=== PATIENT | male | born 1975 | race Caucasian/White ===

== ENCOUNTER 2018-08-10 19:29 | Observation (INO) | payer BC ==
[~2018-08-10] VITALS: Ht 177.8 cm; Wt 159.1 kg
[2018-08-10 20:21] VITALS: BP 133/97
[2018-08-10 20:28] LABS: BASOPHILS 0.4 % (0-2); EOSINOPHILS 1.2 % (0-7); HEMOGLOBIN 15.1 g/dL (13.5-17.5); IMMATURE GRANULOCYTES 0.4 % (0-5); LYMPHOCYTES 20.3 % (15-50); MCHC 32.8 g/dL (31.0-37.0); MCV 88.3 fL (80.0-100.0); MONOCYTES 9.2 % (2-11); NEUTROPHILS 68.5 % (40-80); PLATELET COUNT 284 10x3/uL (130-400); RBC 5.21 10x6/uL (4.20-6.10); RDW 14.4 % (11.5-14.5); WBC 13.6 10x3/uL (4.8-10.8)
[2018-08-10 20:55] LABS: ALBUMIN 2.8 g/dL (3.4-5.0); ALKALINE PHOSPHATASE 53 U/L (46-116); ALT (SGPT) 70 U/L (10-68); BILIRUBIN - TOTAL 0.54 mg/dL (0.2-1.3); CALC OSMOLALITY 286 mosm/kg (275-300); CALCIUM 8.6 mg/dL (8.5-10.1); CARBON DIOXIDE 23.3 mmol/L (21.0-32.0); CHLORIDE - SERUM 108 mmol/L (98-107); CREATININE - SERUM 1.6 mg/dL (0.6-1.3); GLUCOSE 96 mg/dL (74-106); POTASSIUM - SERUM 3.8 mmol/L (3.5-5.1); PROTEIN - SERUM 6.3 g/dL (6.4-8.2); SODIUM 143 mmol/L (136-145); UREA NITROGEN 19 mg/dL (7-18); eGFR NON AFRICAN AMERICAN 51 mL/min (90-120)
[2018-08-10 21:00] VITALS: BP 146/96
[2018-08-10 21:02] LABS: APTT 24.8 SECONDS (22.8-39.4); INR 1.06 (0.85-1.17); PROTIME 13.3 SECONDS (11.6-15.0)
[2018-08-10 21:03] LABS: D-DIMER-QUANTITATIVE 1.89 ug/mLFEU (0.20-0.54)
[2018-08-10 21:09] LABS: CKMB 1.6 U/L (0.0-3.6); CREATINE KINASE 207 UL (21-232); TROPONIN-I 0.042 ng/mL (0.000-0.060)
[2018-08-10 22:00] VITALS: BP 144/115
[2018-08-10 22:28] VITALS: BP 134/78; Ht 177.8 cm; Wt 159.1 kg
[2018-08-10 23:00] VITALS: BP 137/97
[2018-08-11] VITALS (13 sets, daily range): BP systolic 95–139; BP diastolic 50–111
[2018-08-11 07:07] LABS: BASOPHILS 0.5 % (0-2); EOSINOPHILS 1.2 % (0-7); HEMATOCRIT 44.9 % (42.0-54.0); HEMOGLOBIN 14.4 g/dL (13.5-17.5); IMMATURE GRANULOCYTES 0.4 % (0-5); LYMPHOCYTES 16.5 % (15-50); MCH 28.8 pg (26.0-34.0); MCHC 32.1 g/dL (31.0-37.0); MCV 89.8 fL (80.0-100.0); MEAN PLATELET VOLUME 11.4 fL (7.4-10.4); MONOCYTES 10.3 % (2-11); NEUTROPHILS 71.1 % (40-80); PLATELET COUNT 281 10x3/uL (130-400); RDW 14.8 % (11.5-14.5); WBC 11.2 10x3/uL (4.8-10.8)
[2018-08-11 07:26] LABS: ALBUMIN 2.7 g/dL (3.4-5.0); ALKALINE PHOSPHATASE 53 U/L (46-116); ALT (SGPT) 66 U/L (10-68); CALC OSMOLALITY 284 mosm/kg (275-300); CALCIUM 8.5 mg/dL (8.5-10.1); CARBON DIOXIDE 26.4 mmol/L (21.0-32.0); CHLORIDE - SERUM 107 mmol/L (98-107); CKMB 1.7 U/L (0.0-3.6); CREATINE KINASE 141 UL (21-232); CREATININE - SERUM 1.4 mg/dL (0.6-1.3); GLUCOSE 93 mg/dL (74-106); POTASSIUM - SERUM 4.1 mmol/L (3.5-5.1); PROTEIN - SERUM 6.2 g/dL (6.4-8.2); SODIUM 142 mmol/L (136-145); TROPONIN-I 0.027 ng/mL (0.000-0.060); UREA NITROGEN 17 mg/dL (7-18); eGFR NON AFRICAN AMERICAN 59 mL/min (90-120)
[2018-08-11] MEDS ORDERED: BETAPACE 120 M120 MG PO (11:16)
[2018-08-11] MEDS ORDERED: ELIQUIS5 MG PO (11:16)
[2018-08-11] MEDS ORDERED: ASPIRIN325 MG PO (11:16)
--- NOTE | 2018-08-15 10:08 | CN ---
PATIENT NAME:CRISTIAN SHAW MEDICAL RECORD: [id number] : 77 LOCATION:[facility]- ADMIT DATE: 08/10/18 ACCOUNT: [id number] CONSULTING PHYSICIAN: MAURISIO CAIN MD REFERRING PHYSICIAN: SATHISH LEÓN MD DATE OF CONSULTATION: 08/10/2018 DIAGNOSES: 1. Atrial fibrillation. 2. Shortness of breath and dyspnea on exertion. 3. Bronchitis. HISTORY: This is a gentleman who has been treated for bronchitis for the past 3 weeks as an outpatient. He presented due to continued shortness of breath and was found to be in atrial fibrillation with rapid response, sent to the Emergency Room. Here, he does not feel that he is in atrial fibrillation. He does not feel any palpitations. He has not had any chest pain. His EKG is with no ST-T changes. The ventricular response is in the 150s. Initially, he received IV Cardizem, which he is off now. His ventricular response is 100-110 and systolic blood pressure is in 130 range. PHYSICAL EXAMINATION: GENERAL APPEARANCE: Well-nourished, well-developed, appears stated age. Level of distress, comfortable. PSYCHIATRIC: Mental status, alert, normal affect. Orientation, oriented to time, place and person. EYES: Lids and conjunctiva, noninjected. No discharge, no pallor. ENT: Lips, teeth, gums, normal dentition. Oropharynx, no cyanosis, no pallor. NECK: Carotid arteries, bilateral normal upstroke, no bruits, no thrills. JUGULAR VEINS: No jugular venous pressure or distention. CERVICAL LYMPH NODES: Nontender, nonenlarged. THYROID: Not enlarged. Nontender. No nodules. LUNGS: Respiratory effort, unlabored. CHEST: Normal curvature. No thoracic deformity. No chest wall tenderness. Percussion, resonant. Auscultation, clear. No wheezes, no rales, no rhonchi. CARDIOVASCULAR: Precordial exam, nondisplaced. No heaves or pericardial thrills. Rate and rhythm, regular. Heart sounds, normal S1, normal S2. No S3, no gallop, no rub. Systolic murmur, not heard. Diastolic murmur, not heard. EXTREMITIES: No cyanosis, no edema. Peripheral pulses, full and equal in all extremities, except as noted. No bruits appreciated. ABDOMEN: Soft, nondistended. Normal aorta. No bruit. Nontender. No masses. Liver, nontender, no hepatomegaly. Spleen, nontender, no splenomegaly. MUSCULOSKELETAL: No joint tenderness. No joint swelling. No erythema. NEUROLOGICAL: Normal gait, normal strength, normal tone. SKIN: Warm and dry. OVERALL IMPRESSION: Atrial fibrillation with rapid ventricular response. We will get an echocardiogram today and start him on sotalol and Eliquis after the echocardiogram. He can certainly go home. We will follow up as an outpatient on next Friday at 10 o'clock. TRANSINT:[id number] Voice Confirmation ID: [id number] DOCUMENT ID: [id number] CONSULT REPORT [id number] CRISTIAN SHAW, MAURISIO BUSTILLOS at 1008 CC: [id number] DICTATION DATE: 08/11/18 1000 FIRST AID ATTENDANT: 08/11/18 1112 DIS IN 08/11/18 [id number] [place] [address]
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
== END 2018-08-11 14:30 | disposition home or self-care (01) ==
LOC: D.ER 19:29 → OBSVTIME 21:38 → D.ER 21:38 → D.EDHOLD 21:38
PROVIDERS: Family Medicine; ADMIT Family Medicine
DX: I48.91 Unspecified atrial fibrillation (principal); J40 Bronchitis, not specified as acute or chronic; N28.9 Disorder of kidney and ureter, unspecified; I50.9 Heart failure, unspecified

== ENCOUNTER 2018-08-14 11:26 | Inpatient (IN) | payer BC ==
[~2018-08-14] VITALS: Ht 177.8 cm; Wt 159.1 kg
--- NOTE | ~2018-08-14 | HEMODYNAMI ---
PATIENT:CRISTIAN SHAW MEDICAL RECORD: [id number] : 77 [facility] [id number] ADMISSION DATE: 08/14/18 Generatedon:08/15/201810:11 Patient name: CRISTIAN SHAW Patient #: [id number] SS N: : 1975 Date of study: 08/15/2018 Page: Of Hemodynamic Procedure Report Patient Data Patient Demographics Procedure consent was obtained First Name: CRISTIAN Gender: Male Last Name: VALERIA : 1975 Patient #: [id number] Age: 42 year(s) Race: Unknown Additional ID: [id number] Contact details Address: [address] [place] [address] State: [place] City: [place] Zip code: [address] Past Medical History Allergies: No known allergies Admission Admission Data Admission Date: 08/14/2018 Admission Time: 14:16 Room #: D2118 Lab Results Lab Result Date: 08/15/2018 Lab Result Time: 0:00 Biochemistry Name Units Result Min Max BUN mg/dl 27 --(----)-* 7 18 Creatinine mg/dl 1.8 --(----)-* 0.6 1.3 CBC Name Units Result Min Max Hematocrit % 48.7 --(--*-)-- 42 54 Hemoglobin g/dl 15.7 --(--*-)-- 13.5 17.5 Procedure Procedure Types Cath Procedure Diagnostic Procedure LHC C w/Coronaries Procedure Description Procedure Date Procedure Date: 08/15/2018 Procedure Start Time: 10:04 Procedure End Time: 10:10 Procedure Staff Name Function Paul Gonzalez MD Performing Physician Joe Finley RT Monitor Fabian Bullock RN Nurse Nicolle Lerma RT Scrub Procedure Data Cath Procedure Fluoroscopy Diagnostic fluoroscopy Total fluoroscopy Time: 1 time: 1 min min Diagnostic fluoroscopy Total fluoroscopy dose: 561 dose: 561 mGy mGy Contrast Material Contrast Material Type Amount (ml) Isovue 300 39 Entry Location Entry Primary Successful Side Size Upsize Upsize Entry Closure Gerard ccessful Closure Location (Fr) 1 (Fr) 2 (Fr) Remarks Device Remarks Radial Right 6 Fr Mechanical artery Short Compression Estimated blood loss: 5 ml Diagnostic catheters Device Type Used For End Catheter Placement DIAGNOSTIC [place] 110cm 5 Procedure Fr catheter ([id number]) Procedure Complications No complications Procedure Medications Medication Administration Route Dosage 0.9% NaCl I.V. 100 ml/hr Oxygen etCO2 Nasal cannula 2 l/min Heparin Flush Bag added to field 2 bags (1000units/500ml NS) Lidocaine 2% added to field 20 Radial Cocktail added to field 1 syringe (Verapomil 2mg/Nitro 400mcg/Heparin 1500units) Versed I.V. 2 mg Fentanyl I.V. 100 mcg Radial Cocktail I.A. 1 syringe (Verapomil 2mg/Nitro 400mcg/Heparin 1500units) Hemodynamics Rest Heart Rate: 67 (bpm) Snapshots Pre Cath Intra NCS Post Cath Vital Signs Time Heart Resp SPO2 etCO2 NIBP (mmHg) Rhythm Pain Sedation Rate (ipm) (%) (mmHg) Status Level (bpm) 9:51:58 67 39 94 0 137/84(106) NSR 0 (11) 10(A) , No pain 9:56:28 69 34 95 0 125/79(110) NSR 0 (11) 10(A) , No pain 10:00:54 70 16 93 0 118/78(97) NSR 0 (11) 10(A) , No pain 10:05:17 63 26 96 31.2 118/81(97) NSR 0 (11) 10(A) , No pain Medications Time Medication Route Dose Verified Delivered Reason Notes Effectiveness by by 9:56:25 0.9% NaCl I.V. 100 Fabian Fabian Per ml/hr Ara Bullock physician RN RN 9:56:37 Oxygen etCO2 2 l/min Fabian Fabian for low 02 Nasal Lorigan Lorigan sats cannula RN RN 9:57:12 Heparin Flush added 2 bags Fabian Fabian used for Bag to Ara Bullock procedure (1000units/500ml field RN RN NS) 9:57:26 Lidocaine 2% added 20ml Fabian Fabian for local to vial Lorigan Lorigan anesthetic field RN RN 9:57:49 Radial Cocktail added 1 Fabian Fabian used for (Verapomil to syringe Ara Bullock procedure 2mg/Nitro field RN RN 400mcg/Heparin 1500units) 10:04:40 Versed I.V. 2 mg Fabian Peralta for sedation Ara Bullock RN RN 10:04:49 Fentanyl I.V. 100 mcg Fabian Peralta for sedation Ara Bullock RN RN 10:05:02 Radial Cocktail I.A. 1 Fabian Miller for (Verapomil syringe Ara Gonzalez MD vasodilation 2mg/Nitro RN 400mcg/Heparin 1500units) Procedure Log Time Note 9:23:28 Time tracking: Call back (After hours or weekends) 9:36:09 Plan of Care:Hemodynamics will remain stable., Cardiac rhythm will remain stable., Comfort level will be maintained., Respiratory function will remain adequate., Patient/ family verbilizes understanding of procedure., Procedure tolerated without complication., Recovers from procedure without complications.. 9:36:11 Fabian Bullock RN sent for patient. Start room use. 9:41:31 Patient received from PCU to CCL 1 Alert and oriented. Tansferred to table in Supine position. 9:41:32 Warm blankets applied, and manny hugger turned on for patient comfort. 9:41:32 Correct patient and procedure confirmed by team. 9:41:33 Signed procedure consent form obtained from patient. 9:41:34 ECG and BP/O2 sat monitors applied to patient. 9:41:35 Full Disclosure recording started 9:50:40 Vital chart was started 9:56:25 0.9% NaCl 100 ml/hr I.V. was administered by Fabian Bullock RN; Per physician; 9:56:37 Oxygen 2 l/min etCO2 Nasal cannula was administered by Fabian Bullock RN; for low 02 sats; 9:57:12 Heparin Flush Bag (1000units/500ml NS) 2 bags added to field was administered by Fabian Bullock RN; used for procedure; 9:57:26 Lidocaine 2% 20ml vial added to field was administered by Fabian Bullock RN; for local anesthetic; 9:57:49 Radial Cocktail (Verapomil 2mg/Nitro 400mcg/Heparin 1500units) 1 syringe added to field was administered by Fabian Bullock RN; used for procedure; 9:59:48 Baseline sample Acquired. 9:59:51 Rhythm: atrial fibrillation 10:00:00 H&P Date Dictated: 08/11/2018 Within 30 days and on chart.. 10:00:02 Pre-procedure instructions explained to patient. 10:00:02 Pre-op teaching completed and patient verbalized understanding. 10:00:03 Family in waiting room. 10:00:06 Patient NPO since Midnight. 10:00:12 Patient allergic to No known allergies 10:02:33 Is the patient allergic to Iodine/contrast media? No. 10:02:34 Is patient on blood thinner?Yes 10:02:35 ACC The patient was administered the following blood thiners within the last 24 hours: ACCPlavix 10:02:36 Patient diabetic? No. 10:02:39 Previous problem with sedation/anesthesia? No ? 10:02:40 Snore? Yes 10:02:41 Sleep apnea? Unknown 10:02:48 Deviated septum? No 10:02:49 Opens mouth fully? Yes 10:02:49 Sticks out tongue? Yes 10:02:52 Airway obstruction? No ? 10:02:54 Dentures? No ? 10:02:56 Pre procedure: right dorsailis pedis pulse Doppler 10:02:58 Modified Reese's test Ulnar < 7 seconds 10:02:59 Patient pain scale 0/10 ?. 10:03:13 IV patent on arrival in left antecubital with 0.9% NaCl at [facility]. 10:03:15 Lab results completed and on chart. 10:03:17 Right Radial & Right Groin area was prepped with chlora-prep and draped in sterile fashion 10:03:17 Alarms reviewed by R. N. 10:03:18 Sharps counted by scrub and verified by R.N. 10:03:21 Zero performed for pressure channel P1 10:03:25 Zero performed for pressure channel P1 10:03:28 Zero performed for pressure channel P1 10:03:39 Zero performed for pressure channel P1 10:03:55 Use device set Radial Dx or PCI 10:03:56 ACIST Syringe (77504) opened to sterile field. 10:03:57 Medline Cath Pack ([id number]) opened to sterile field. 10:03:58 Bag Decanter (2002S) opened to sterile field. 10:03:59 ACIST Hand Control (53747) opened to sterile field. 10:03:59 ACIST Manifold (62143) opened to sterile field. 10:03:59 Tegaderm 4 x 4 (1626W) opened to sterile field. 10:04:00 MBrace Wrist Support ([id number]) opened to sterile field. 10:04:01 SHEATH 6FR Slender (70-7031) opened to sterile field. 10:04:02 DIAGNOSTIC WIRE .035 260cm J wire (448883) opened to sterile field. 10:04:07 Physician arrived 10:04:07 --------ALL STOP TIME OUT------ 10:04:08 Final Timeout: patient, procedure, and site verified with staff and physician. All members of the team are in agreement. 10:04:09 Right Radial & Right Groin site verified by team. 10:04:12 Fire Safety Assessment: A--An alcohol-based skin anteseptic being used preoperatively., C--Open oxygen or nitrous oxide is being used., D--An ESU, laser, or fiber-optic light is being used. 10:04:18 Physical assessment completed. ASA score P 2 - A patient with mild systemic disease as per Paul Gonzalez MD. 10:04:21 Sedation plan: IV Moderate Sedation Medication:Versed, Fentanyl 10:04:27 Procedure started. 10:04:35 Local anesthetic to right radial artery with Lidocaine 2% by Paul Gonzalez MD.INITIAL ACCESS ONLY 10:04:40 Versed 2 mg I.V. was administered by Fabian Bullock RN; for sedation; 10:04:44 A 6 Fr Short sheath was inserted into the Right Radial artery 10:04:49 Fentanyl 100 mcg I.V. was administered by Fabian Bullock RN; for sedation; 10:04:51 A DIAGNOSTIC [place] 110cm 5 Fr catheter (330953) was advanced over the wire and used for Procedure. 10:04:53 LV gram done using VACA 10:04:58 Injector settings: Ml/sec: 5, Volume: 15, 10:05:02 Radial Cocktail (Verapomil 2mg/Nitro 400mcg/Heparin 1500units) 1 syringe I.A. was administered by Paul Gonzalez MD; for vasodilation; 10:05:04 EF : 30 % 10:05:05 LCA angiography performed. 10:05:26 RCA angiography performed. 10:05:41 Catheter removed. 10:05:43 TR BAND Large ([id number]) opened to sterile field. 10:07:16 Sheath removed intact; hemostasis achieved with Mechanical Compression to the Right Radial artery. 10:07:17 Procedure ended.(Physican Out) 10:07:34 Fluoroscopy time 01.00 minutes. 10:07:38 Fluoroscopy dose: 561 mGy 10:07:38 Flurop Dose total: 561 10:07:46 Contrast amount:Isovue 300 39ml. 10:07:47 Sharps counted by scrub and verified by R.N. 10:07:49 TR band inflated with 12cc of air. 10:07:50 Insertion/operative site no bleeding no hematoma. 10:07:56 Post right radial artery:stable, soft, clean and dry 10:07:58 Post Procedure Pulses reassessed and unchanged 10:08:01 Post-procedure physical assessment completed. ASA score P 2 - A patient with mild systemic disease as per Paul Gonzalez MD. 10:08:15 Post procedure rhythm: unchanged. 10:08:19 Estimated blood loss: 5 ml 10:08:20 Post procedure instruction explained to patient.Patient verbalizes understanding. 10:08:21 Patient needs reinforcement of post procedure teaching. 10:09:28 Procedure and supply charges have been captured, reviewed, submitted and are correct. 10:09:31 Procedure Complication : No complications 10:09:56 Vital chart was stopped 10:09:58 See physician's report for complete and final results. 10:10:04 Report given to PCU. 10:10:06 Patient transfered to PCU with Stretcher. 10:10:08 Procedure ended. 10:10:08 Full Disclosure recording stopped 10:10:12 End room use (Document Last) 10:10:53 Lab Result : Creatinine 1.8 mg/dl 10:10:53 Lab Result : BUN 27 mg/dl 10:10:53 Lab Result : Hematocrit 48.7 % 10:10:53 Lab Result : Hemoglobin 15.7 g/dl Device Usage Item Name Manufacture Quantity Catalog Hospital Part Current Minimal Lot# / Number Charge Number Stock Stock Serial# Code [facility] 1 [id number] [id number] 681014 579090 20 Syringe Medical (47549) Systems Inc Medline Medline 1 [id number] 75964 733127 5 Cath Pack ([id number]) Bag Microtek 1 2001S 220530 27470 188303 5 Decanter Medical Inc. () ACIST Hand Acist 1 86100 598837 004201 259292 5 Control Medical (29617) Systems Inc ACIST Acist 1 62977 756522 526432 193442 5 Manifold Medical (10869) Systems Inc Tegaderm 4 3M 1 1626W 533935 636970 339531 5 x 4 (1626W) MBrace Advanced 1 140-0250-00 679590 99415 517308 5 Wrist Vascular Support Dynamics ([id number]) SHEATH 6FR Terumo 1 [id number] 953362 167216 002543 5 Slender (801060) DIAGNOSTIC [facility] 1 565760 113777 654210 220490 30 WIRE .035 260cm J wire (484348) DIAGNOSTIC Terumo 1 40-0280 948462 198806 201659 5 [place] 110cm 5 Fr catheter (058807) TR BAND Terumo 1 [id number] 803190 982903 746766 40 Large ([id number]) Signature Audit [place] Stage Time Signature Unsigned Intra-Procedure 08/15/2018 Joe Finley 10:11:05 AM RT(R) Signatures Monitor : Joe Finley RT Signature : Date : Time : [facility] [address] [facility] [place] [address]
[~2018-08-14 11:26] MED LIST: ASPIRIN325 MG PO; BETAPACE 120 M120 MG PO; ELIQUIS5 MG PO
[2018-08-14 12:19] LABS: BASOPHILS 0.7 % (0-2); EOSINOPHILS 2.6 % (0-7); HEMATOCRIT 48.7 % (42.0-54.0); HEMOGLOBIN 15.7 g/dL (13.5-17.5); IMMATURE GRANULOCYTES 0.4 % (0-5); LYMPHOCYTES 19.4 % (15-50); MCH 28.5 pg (26.0-34.0); MCHC 32.2 g/dL (31.0-37.0); MCV 88.5 fL (80.0-100.0); MEAN PLATELET VOLUME 12.2 fL (7.4-10.4); NEUTROPHILS 64.9 % (40-80); PLATELET COUNT 277 10x3/uL (130-400); RDW 14.3 % (11.5-14.5); WBC 11.8 10x3/uL (4.8-10.8)
[2018-08-14 12:25] LABS: ALBUMIN 2.7 g/dL (3.4-5.0); ALKALINE PHOSPHATASE 49 U/L (46-116); ALT (SGPT) 71 U/L (10-68); BILIRUBIN - TOTAL 0.64 mg/dL (0.2-1.3); CALC OSMOLALITY 290 mosm/kg (275-300); CARBON DIOXIDE 25.8 mmol/L (21.0-32.0); CHLORIDE - SERUM 107 mmol/L (98-107); CREATININE - SERUM 1.8 mg/dL (0.6-1.3); GLUCOSE 114 mg/dL (74-106); POTASSIUM - SERUM 4.2 mmol/L (3.5-5.1); PROTEIN - SERUM 6.4 g/dL (6.4-8.2); SODIUM 143 mmol/L (136-145); UREA NITROGEN 27 mg/dL (7-18); eGFR NON AFRICAN AMERICAN 44 mL/min (90-120)
[2018-08-14 12:39] LABS: CKMB 1.2 U/L (0.0-3.6); CREATINE KINASE 112 UL (21-232); PRO BNP 3027 pg/mL (0-125); TROPONIN-I 0.019 ng/mL (0.000-0.060)
[2018-08-14 13:30] VITALS: BP 116/86
--- NOTE | 2018-08-14 13:30 | NUR ---
PT STABLE, CALL LIGHT WITHIN REACH, DENIES NEEDS, WILL CONTINUE TO MONITOR.
[2018-08-14 14:15] VITALS: BP 115/83
--- NOTE | 2018-08-14 15:05 | NUR ---
REPORT CALLED TO [facility], ROOM 2118. PT STABLE, CALL LIGHT WITHIN REACH. READY FOR TRANSPORT.
[2018-08-14] MEDS ORDERED: ASPIRIN325 MG PO (15:41)
[2018-08-14 15:49] VITALS: Ht 177.8 cm; Wt 159.1 kg
--- NOTE | 2018-08-14 16:00 | NUR ---
PT ARRIVED FROM ER VIA WC. NO DISTRESS AND NO COMPLAINTS. SOME WHEEZING NOTED ON EXPIRATION.CARDIZEM GTT GOING AT 10/CC. PT REFUSES TO HAVE WALLET PLACED IN SAFE. SAYS HIS WILL TAKE IT WHEN SHE ARRIVES. MONITOR SHOWS CONTROLLED AFIB AT 83.
[2018-08-14 16:40] VITALS: BP 104/61
--- NOTE | 2018-08-14 17:02 | NUR ---
WITHOUT CHANGES OR DISTRESS NOTED AT THIS TIME. DENIES NEEDS.
[2018-08-14 19:50] VITALS: BP 98/66
--- NOTE | 2018-08-14 21:59 | NUR ---
INITAIL ORUNDS COMPLETED AT 1909 HRS. PT DENIED ANY DISCOMFORT. ASSESSMENT COMPLETED AT 2049 HRS. VSS. CAF PER CM HR 83. LUNGS DIMINISHED IN BASES BILAT. RODRIGUEZ. PALPABLE PERIPHERAL PULSES. 2+ PEDAL EDEMA NOTED. IV TO LAC WITH CARDIZEM AT 10CC/HR (10MG/HR). IV PATENT. DR CAIN CALLED AT 2104 HRS AND NOTIFIED OF PT'S CR OF 1.8. NO NEW ORDERS. PT CURRENTLY WATCHING TV. SR UP X2, CALL LIGHT WITHIN REACH.
[2018-08-14 23:50] VITALS: BP 106/73
--- NOTE | 2018-08-14 23:56 | NUR ---
PT SITTING UP IN THE RECLINER RESTING WITH EYES CLOSED. RESP EVEN AND REGULAR. CALL LIGHT WITHIN REACH.
--- NOTE | 2018-08-15 02:28 | NUR ---
PT SITTING IN RECLINER RESTING WITH EYES CLOSED. RESP EVEN AND REGULAR. CALL LIGHT WITHIN REACH.
[2018-08-15 03:55] VITALS: BP 98/64
--- NOTE | 2018-08-15 04:16 | NUR ---
PT SITITNG IN RECLINER. DENIES ANY DISCOMFORT. CAF PER CM HR 64. CALL LIGHT WITHIN REACH.
[2018-08-15 05:10] LABS: BASOPHILS 0.5 % (0-2); EOSINOPHILS 3.8 % (0-7); HEMATOCRIT 45.6 % (42.0-54.0); HEMOGLOBIN 14.9 g/dL (13.5-17.5); IMMATURE GRANULOCYTES 0.3 % (0-5); LYMPHOCYTES 22.2 % (15-50); MCH 28.8 pg (26.0-34.0); MCHC 32.7 g/dL (31.0-37.0); MCV 88.2 fL (80.0-100.0); MEAN PLATELET VOLUME 11.8 fL (7.4-10.4); MONOCYTES 12.9 % (2-11); NEUTROPHILS 60.3 % (40-80); PLATELET COUNT 278 10x3/uL (130-400); RBC 5.17 10x6/uL (4.20-6.10); RDW 14.4 % (11.5-14.5); WBC 11.8 10x3/uL (4.8-10.8)
[2018-08-15 05:41] LABS: ALBUMIN 2.8 g/dL (3.4-5.0); ANION GAP 14.5 mmol/L (8-16); BILIRUBIN - TOTAL 0.99 mg/dL (0.2-1.3); CALCIUM 8.9 mg/dL (8.5-10.1); CARBON DIOXIDE 28.4 mmol/L (21.0-32.0); CREATININE - SERUM 1.8 mg/dL (0.6-1.3); POTASSIUM - SERUM 3.9 mmol/L (3.5-5.1); PROTEIN - SERUM 5.8 g/dL (6.4-8.2)
--- NOTE | 2018-08-15 06:45 | NUR ---
VSS THROUGHOUT NIGHT. CAF PER CM. PT DENIED ANY DISCOMFORT. NEEDS MET; WILL CONTINUE TO MONITOR.
--- NOTE | 2018-08-15 07:51 | NUR ---
ROUNDING DONE WITH PATIENT RESTING IN CHIAR, NOT BED. EYES CLOSED, RESP ARE EVEN. ON ROOM AIR. CARDIZEM DRIP SEEN INFUSING AT 10 CC/HR PIV TO LEFT AC. ON HEART MONITOR SHOWING SR, HR 73. NPO FOR HEART CATH TODAY. WILL MONITOR.
--- NOTE | 2018-08-15 08:49 | NUR ---
PATIENT IS INSTRCUTED TO POST PROCEDURE OF LAYING FLAT OR WRIST. INFORMS ME THAT "THERE ISN'T ANYWAY I AM LAYING FLAT". I INFORMED HIM THAT WE MAY GO THROUGH A FEMORAL ARTERY, HE SAID "THEN KNOCK ME OUT". BILATEAL LOWER LEGS ARE RED AND FEET ARE 3+ SWOLLEN, HE REFUSES TO PLACE THEM UP ON THE BED TO DECREASE THE SWELLING.
[2018-08-15 09:17] VITALS: BP 97/58
--- NOTE | 2018-08-15 09:37 | NUR ---
TO INTELLIGENCE SUPPORT OFFICER VIA BED.
--- NOTE | 2018-08-15 10:29 | NUR ---
RETURNS FROM UNIX DEVELOPER WITH TR BAND SEEN TO RIGHT WRIST. NO BLEEDING SEEN. ON 2L PER NC. WILL MONITOR.
--- NOTE | 2018-08-15 10:32 | NUR ---
VERBAL ORDER TO Jere HERRERA FROM DR CAIN.
[2018-08-15] MEDS ORDERED: LASIX40 MG PO (11:32)
[2018-08-15] MEDS ORDERED: K-DUR20 MEQ PO (11:33)
--- NOTE | 2018-08-15 11:53 | NUR ---
IV FLUIDS D/C PATIENT IS EATING AND DRINKING. STILL NO BLEEDING SEEN TO RIGHT WRIST AREA. TR BAND WILL BE SLOWLY RELEASED AROUND 1230. AT BEDSIDE.
--- NOTE | 2018-08-15 12:37 | NUR ---
2 CC OF AIR REMOVED FROM TR BAND. IV CONVERTED TO SALINE LOCK. ASSISTED PATIENT TO RESTROOM. INSTRUCTED TO NOT USE HIS RIGHT WRIST/HAND.
--- NOTE | 2018-08-15 12:58 | NUR ---
3 CC OF AIR REMOVED FROM RIGHT TR BAND.
--- NOTE | 2018-08-15 13:15 | NUR ---
ANOTHE 3 CC OF AIR REMOVED.
--- NOTE | 2018-08-15 13:42 | NUR ---
TR BAND REMOVED, CLEAN 2 X 2 AND SMALL OPSITE PLACED. NO BLEEDING SEEN. REPLACED SPLINT TO RIGHT WRIST. AWAITING TO COME BACK SO HE CAN BE DISCHARGED.
--- NOTE | 2018-08-15 14:32 | NUR ---
VERBAL AND WRITTEN DISCHARGE ORDERS GIVEN TO PATIENT AND . SALINE LOCK REMOVED WITH CATH TIP INTACT. DISCHARGED HOME VIA WHEELCHAIR.
--- NOTE | 2018-08-18 11:18 | DS ---
PATIENT:CRISTIAN SHAW :77 MEDICAL RECORD: [id number] DISCHARGE SUMMARY ADMISSION DATE: 08/14/18 DISCHARGE DATE: 08/15/18 DIAGNOSES: 1. Nonischemic cardiomyopathy. 2. Congestive heart failure. 3. Atrial fibrillation. 4. Lower extremity edema. 5. Shortness of breath. HOSPITAL COURSE: Mr. Shaw presents with shortness of breath and lower extremity edema. He presented earlier in the week with this, he had atrial fibrillation of unknown duration, was put on Eliquis and Betapace. His heart rate is now slowed. He continues to have symptomatology. Underwent cardiac catheterization revealing no significant coronary artery disease but ejection fraction in the 30% range. His Betapace was decreased to 60 mg b.i.d. He had the addition of Lasix and potassium to his medical regimen. Follow up with [facility] in 2 weeks. TRANSINT:[id number] Voice Confirmation ID: [id number] DOCUMENT ID: [id number] MAURISIO CAIN MD at 1118 CC: [id number] DICTATION DATE: 08/15/18 1009 ANIMAL SHELTER WORKER: 08/16/18 0013 DIS IN 08/15/18 [facility] [address] [place] [address]
--- NOTE | 2018-08-18 11:18 | OP ---
PATIENT NAME: CRISTIAN SHAW MEDICAL RECORD: [id number] :77 LOCATION:D.M2 D.2118 ADMISSION DATE:08/14/18 SURGEON: MAURISIO CAIN MD DATE OF OPERATION: 08/15/2018 DATE OF SERVICE: 08/15/2018 PROCEDURES: 1. Left heart catheterization. 2. Selective coronary angiography. 3. Left ventriculogram. INDICATION: Shortness of breath, dyspnea on exertion, congestive heart failure and cardiomyopathy. PROCEDURE IN DETAIL: After informed consent was obtained and after a detailed explanation of risks, benefits as well as alternative therapies, the patient elected to proceed with angiogram and heart catheterization. The right radial area was prepped and draped in normal sterile fashion. Right radial artery was cannulated via modified Seldinger technique with placement of 5-[place] sheath. All catheters exchanged through this sheath. FINDINGS: Left ventriculogram was performed in a standard 30-degree VACA view, reveals global hypokinesis throughout all segments. Overall ejection fraction in the 30% range. SELECTIVE CORONARY ANGIOGRAPHY: Left main, left anterior descending, left circumflex, right coronary artery are all smooth-walled vessels with no angiographic evidence of coronary artery disease. OVERALL IMPRESSION: 1. No angiographic evidence of coronary artery disease. 2. Nonischemic cardiomyopathy, ejection fraction of 30%. Center medical management on treatment of the cardiomyopathy. TRANSINT:[id number] Voice Confirmation ID: [id number] DOCUMENT ID: [id number] MAURISIO CAIN MD at 1118 CC: [id number] DICTATION DATE: 08/15/18 1012 HARVEST FIELD TICKETER: 08/15/18 1020 DIS IN 08/15/18 [id number] [place] [address]
--- NOTE | 2018-08-19 09:12 | MORECARE ---
CASE MANAGEMENT DISCHARGE SUMMARY PATIENT: CRISTIAN SHAW UNIT: [id number] ADM DATE: 08/14/18 AGE: 42 : [birth year] SEX: M ROOM/BED: D.2118 AUTHOR: GIBRAN MENDENHALL PHYSICIAN: REFERRING PHYSICIAN: SATHISH LEÓN MD DATE OF SERVICE: 08/19/18 Discharge Plan Patient Name: CRISTIAN SHAW [facility] [facility] 1975 Planned Disposition: Home Anticipated Discharge Date: 08/15/18 Discharge Date: 08/15/2018 Expected LOS: 1 Initial Reviewer: [email or web address] Initial Review Date: 08/19/2018 Generated: 08/19/18 10:11 am Patient Name: CRISTIAN SHAW Page [id number] at 0912 All edits/amendments must be made on the electronic document DICTATION DATE: 08/19/18910 MEDICATION SPECIALIST: RONNIE 08/19/18910 RPT#: [id number] DC DATE:08/15/18 STATUS: DIS IN [facility] [address] [place] [address] END OF REPORT
== END 2018-08-15 14:34 | disposition home or self-care (01) | DRG 287 ==
LOC: D.ER 11:26 → D.EDHOLD 14:16 → D.M2 14:17
PROVIDERS: Family Medicine; Internal Medicine Interventional Cardiology; ADMIT Family Medicine
PROC: B2151ZZ Fluoroscopy of Left Heart using Low Osmolar Contrast (ICD-10-PCS; 2018-08-15)
PROC: 4A023N7 Measurement of Cardiac Sampling and Pressure, Left Heart, Percutaneous Approach (ICD-10-PCS; 2018-08-15)
PROC: B2111ZZ Fluoroscopy of Multiple Coronary Arteries using Low Osmolar Contrast (ICD-10-PCS; principal; 2018-08-15 09:36)
DX: I50.9 Heart failure, unspecified (principal); Z68.43 Body mass index [BMI] 50.0-59.9, adult; I42.9 Cardiomyopathy, unspecified; I20.9 Angina pectoris, unspecified; I48.91 Unspecified atrial fibrillation; I34.0 Nonrheumatic mitral (valve) insufficiency; E66.9 Obesity, unspecified

== ENCOUNTER 2018-10-07 10:12 | Outpatient (CLI) | payer BC ==
[~2018-10-07] VITALS: Ht 177.8 cm; Wt 140.9 kg
--- NOTE | ~2018-10-07 | HEMODYNAMI ---
PATIENT:CRISTIAN SHAW MEDICAL RECORD: [id number] : 77 LOCATION:[facility] ADMISSION DATE: 10/07/18 Generatedon:10/07/201812:32 Patient name: CRISTIAN SHAW Patient #: [id number] SS N: : 1975 Date of study: 10/07/2018 Page: Of Hemodynamic Procedure Report Patient Data Patient Demographics Procedure consent was obtained First Name: CRISTIAN Gender: Male Last Name: VALERIA : 1975 Patient #: [id number] Age: 42 year(s) Race: Unknown Additional ID: [id number] Contact details Address: [address] [place] [address] ROAD State: [place] City: [place] Zip code: [address] Past Medical History Allergies: No known allergies Admission Admission Data Admission Date: 10/07/2018 Admission Time: 10:12 Procedure Procedure Types Cath Procedure Diagnostic Procedure Cardioversion External Procedure Description Procedure Date Procedure Date: 10/07/2018 Procedure Start Time: 12:17 Procedure End Time: 12:19 Procedure Staff Name Function Paul Gonzalez MD Performing Physician Sylvia Real RT Monitor Jong Casanova RN Nurse Wade Medley MD Additional personnel Procedure Data Cath Procedure Fluoroscopy Diagnostic fluoroscopy Total fluoroscopy Time: 0 time: 0 min min Diagnostic fluoroscopy Total fluoroscopy dose: 0 dose: 0 mGy mGy Contrast Material Contrast Material Type Amount (ml) Isovue 300 0 Estimated blood loss: 5 ml Procedure Complications No complications Procedure Medications Medication Administration Route Dosage Oxygen etCO2 Nasal cannula 2 l/min Refer to Anesthesia Notes for Sedation Medications Hemodynamics Rest Heart Rate: 58 (bpm) Snapshots Pre Cath Intra NCS Post Cath Vital Signs Time Heart Resp SPO2 etCO2 NIBP (mmHg) Rhythm Pain Sedation Rate (ipm) (%) (mmHg) Status Level (bpm) 11:57:35 71 12 100 0 105/82(89) A-Fib 0 (11) 10(A) , No pain 12:01:51 65 14 100 0 117/57(100) A-Fib 0 (11) 10(A) , No pain 12:06:09 59 16 100 0 114/67(88) A-Fib 0 (11) 10(A) , No pain 12:10:23 77 21 100 35.9 112/75(96) A-Fib 0 (11) 10(A) , No pain 12:14:35 66 17 100 35.9 121/72(89) A-Fib 0 (11) 9(A) , No pain 12:18:49 57 10 100 0 109/65(80) NSR 0 (11) 9(A) , No pain 12:25:27 82 14 93 15.7 108/75(86) NSR 0 (11) 9(A) , No pain 12:31:47 80 14 97 20.9 110/72(87) NSR 0 (11) 10(A) , No pain Medications Time Medication Route Dose Verified Delivered Reason Notes Effective ness by by 12:01:17 Oxygen etCO2 2 Paul Sunshine used for Nasal l/min Carlos Casanova RN procedure cannula 12:01:20 Refer to Paul Sunshine Anesthesia Carlos Casanova RN Notes for Sedation Medications Procedure Log Time Note 11:44:12 Diagnostic Cath Status : Elective 11:45:00 Sylvia Farhan RT(R) sent for patient. Start room use. 11:45:00 Time tracking: Regular hours (M-F 7:00 - 5:00) 11:45:04 Plan of Care:Hemodynamics will remain stable., Cardiac rhythm will remain stable., Comfort level will be maintained., Respiratory function will remain adequate., Patient/ family verbilizes understanding of procedure., Procedure tolerated without complication., Recovers from procedure without complications.. 11:56:26 Patient received from Pre/Post Procedure Room to CCL 3 Alert and oriented. Tansferred to table in Supine position. 11:56:27 Warm blankets applied, and manny hugger turned on for patient comfort. 11:56:27 Correct patient and procedure confirmed by team. 11:56:29 Signed procedure consent form obtained from patient. 11:56:30 ECG and BP/O2 sat monitors applied to patient. 11:56:30 Vital chart was started 11:56:32 Baseline sample Acquired. 11:56:36 Rhythm: atrial fibrillation 11:56:37 Full Disclosure recording started 11:56:41 H&P Date Dictated: 10/07/2018 Within 30 days and on chart., H&P Addendum completed by physician on day of procedure. (MUST COMPLETE FOR ALL OUTPATIENTS). 11:56:43 Pre-procedure instructions explained to patient. 11:56:43 Pre-op teaching completed and patient verbalized understanding. 11:56:45 Family in patients room. 11:56:47 Patient NPO since Midnight. 11:56:48 Is the patient allergic to Iodine/contrast media? No. 11:56:49 Was the patient premedicated? No 11:56:50 Is patient on blood thinner?Yes 11:56:54 ACC The patient was administered the following blood thiners within the last 24 hours: Eliquis 11:57:03 Patient diabetic? No. 11:57:06 Previous problem with sedation/anesthesia? No ? 11:57:08 Snore? Yes 11:57:08 Sleep apnea? Yes 11:57:09 Deviated septum? No 11:57:10 Opens mouth fully? Yes 11:57:11 Sticks out tongue? Yes 11:57:13 Airway obstruction? No ? 11:57:15 Dentures? No ? 11:57:19 Pre procedure: right dorsailis pedis pulse 2+ Normal; easily identifiable; not easily obliterated 11:57:21 Pre procedure: left dorsailis pedis pulse 2+ Normal; easily identifiable; not easily obliterated 11:57:23 Patient pain scale 0/10 ?. 11:57:28 IV patent on arrival in right antecubital with 0.9% NaCl at KVO. 11:57:31 Lab results completed and on chart. 11:57:39 Alarms reviewed by R. N. 11:57:39 Sharps counted by scrub and verified by R.N. 12:01:17 Oxygen 2 l/min etCO2 Nasal cannula was administered by Jong Casanova RN; used for procedure; 12:01:20 Refer to Anesthesia Notes for Sedation Medications was administered by Jong Casanova RN; ; 12:01:37 Quick combo pads placed on patients chest and back. 12:01:42 Defibrillator synced and charged to 275 Joules. 12:02:41 Wade Medley MD present and monitoring patient for TIVA. 12:10:12 Physician paged 12:14:49 Physician arrived 12:14:50 --------ALL STOP TIME OUT------ 12:14:51 Final Timeout: patient, procedure, and site verified with staff and physician. All members of the team are in agreement. 12:14:53 Mid Chest site verified by team. 12:14:59 Fire Safety Assessment: A--An alcohol-based skin anteseptic being used preoperatively., C--Open oxygen or nitrous oxide is being used., D--An ESU, laser, or fiber-optic light is being used. 12:15:02 Physical assessment completed. ASA score P 2 - A patient with mild systemic disease as per Paul Gonzalez MD. 12:15:05 Sedation plan: IV Moderate Sedation Medication:Versed, Fentanyl 12:15:44 Procedure started. 12:16:22 Shock delivered. 12:16:39 Patient cardioverted to sinus rhythm . 12:16:56 Procedure ended.(Physican Out) 12:17:07 Fluoroscopy time 00.00 minutes. 12:17:09 Fluoroscopy dose: 0 mGy 12:17:09 Flurop Dose total: 0 12:17:13 Contrast amount:Isovue 300 0ml. 12:17:15 Sharps counted by scrub and verified by R.N. 12:18:06 Insertion/operative site no bleeding no hematoma. 12:18:09 Post Procedure Pulses reassessed and unchanged 12:18:12 Post procedure rhythm: sinus rhythm 12:18:15 Estimated blood loss: 5 ml 12:18:18 Post procedure instruction explained to patient.Patient verbalizes understanding. 12:18:18 Patient needs reinforcement of post procedure teaching. 12:18:42 Procedure and supply charges have been captured, reviewed, submitted and are correct. 12:18:47 Procedure Complication : No complications 12:18:50 Vital chart was stopped 12:18:52 See physician's report for complete and final results. 12:19:17 Procedure ended. 12:19:17 Full Disclosure recording stopped 12:20:37 dr gonzalez back in room 12:22:53 Patient converted into flutter; recharging 12:23:03 Defibrillator synced and charged to 275 Joules. 12:24:32 Shock delivered. 12:25:08 Defibrillator synced and charged to 300 Joules. 12:25:30 Unsuccessful cardioversion. 12:26:56 Procedure ended.(Physican Out) 12:27:17 End room use (Document Last) Signature Audit Maxwell Stage Time Signature Unsigned Intra-Procedure 10/07/2018 Sylvia Real 12:32:31 PM RT(R) Signatures Monitor : Sylvia Real RT Signature : Date : Time : [address] [place] [address]
[~2018-10-07 10:12] MED LIST changes: +K-DUR20 MEQ PO; +LASIX40 MG PO
[2018-10-07] MEDS ORDERED: LISINOPRIL2.5 MG PO (10:21)
[2018-10-07] MEDS ORDERED: LANOXIN125 MCG PO (10:21)
[2018-10-07 10:32] VITALS: BP 107/74; Ht 177.8 cm; Wt 140.9 kg
[2018-10-07 10:46] LABS: BASOPHILS 0.5 % (0-2); EOSINOPHILS 2.3 % (0-7); HEMATOCRIT 46.4 % (42.0-54.0); HEMOGLOBIN 15.6 g/dL (13.5-17.5); IMMATURE GRANULOCYTES 0.4 % (0-5); LYMPHOCYTES 28.9 % (15-50); MCHC 33.6 g/dL (31.0-37.0); MCV 86.2 fL (80.0-100.0); MEAN PLATELET VOLUME 10.5 fL (7.4-10.4); MONOCYTES 10.7 % (2-11); NEUTROPHILS 57.2 % (40-80); PLATELET COUNT 231 10x3/uL (130-400); RBC 5.38 10x6/uL (4.20-6.10); RDW 15.3 % (11.5-14.5); WBC 7.5 10x3/uL (4.8-10.8)
[2018-10-07 10:54] LABS: ANION GAP 7.9 mmol/L (8-16); CALCIUM 8.9 mg/dL (8.5-10.1); CARBON DIOXIDE 32.1 mmol/L (21.0-32.0); CREATININE - SERUM 1.3 mg/dL (0.6-1.3)
[2018-10-07 11:04] LABS: INR 1.11 (0.85-1.17); PROTIME 13.8 SECONDS (11.6-15.0)
--- NOTE | 2018-10-07 12:40 | NUR ---
PT ARRIVED BY STRETCHER. PLACED ON MONITORS. ASSESSMENT COMPLETED. FAMILY AT BEDSIDE.
--- NOTE | 2018-10-07 12:55 | NUR ---
DR. CAIN ROUNDED AND SPOKE WITH PT AND PT'S FAMILY.
--- NOTE | 2018-10-07 13:06 | NUR ---
PT STILL IN ATRIAL FIBRILLATION. VSS. SITTING UP IN BED. GIVEN SANDWICH TRAY AND DRINK. DENIES NAUSEA. FAMILY AT BEDSIDE.
--- NOTE | 2018-10-07 13:36 | NUR ---
RIGHT AC PIV D/C'D WITH CATH TIP INTACT. PT TOLERATED WELL. VSS. DISCUSSED DISCHARGE INSTRUCTIONS WITH PT AND PT'S FAMILY. THEY VOICED UNDERSTANDING.
--- NOTE | 2018-10-07 13:50 | NUR ---
PT TAKEN OUT TO VEHICLE BY WHEELCHAIR. ALL DISCHARGE PAPERWORK AND BELONGINGS IN HAND. NO S/S OF DISTRESS NOTED.
--- NOTE | 2018-10-07 14:39 | OP ---
PATIENT NAME: CRISTIAN SHAW MEDICAL RECORD: [id number] :[birth year] LOCATION:D.CAT ADMISSION DATE: SURGEON: MAURISIO CAIN MD DATE OF OPERATION: 10/07/2018 DATE OF SERVICE: 10/07/2018 PROCEDURE: DC cardioversion. INDICATION: Atrial fibrillation. PROCEDURE IN DETAIL: IV conscious sedation was per anesthesia. Continuous heart rate, O2 saturation, blood pressure monitoring all undertaken, all of which remains stable. He received 1 shock at 275 joules. OVERALL IMPRESSION: Successful DC cardioversion from atrial fibrillation to sinus rhythm. TRANSINT:[id number] Voice Confirmation ID: [id number] DOCUMENT ID: [id number] MAURISIO CAIN MD at 1439 CC: [id number] DICTATION DATE: 10/07/18 1219 MANAGER CHINESE: 10/07/18 1326 DEP CLI 10/07/[address] [address]
== END 2018-10-07 13:50 | disposition home or self-care (01) ==
LOC: D.CATH 10:12
PROVIDERS: ATTEND Internal Medicine Interventional Cardiology
DX: I48.91 Unspecified atrial fibrillation (principal); Z01.812 Encounter for preprocedural laboratory examination

== ENCOUNTER → 2020-09-01 08:02 | Outpatient (CLI) | payer BC ==
[2018-10-07 10:32] VITALS: BMI 44.5
[~2020-09-01 08:02] MED LIST changes: +LANOXIN125 MCG PO; +LISINOPRIL2.5 MG PO
--- NOTE | 2020-09-05 13:52 | EC ---
PATIENT:CRISTIAN SHAW DATE OF SERVICE: 09/01/20 SEX: M MEDICAL RECORD: [id number] DATE OF : [birth year] [facility] AGE OF PATIENT: 44 ADMISSION DATE: 09/01/20 REFERRING PHYSICIAN: INTERPRETING PHYSICIAN: BHAVESH DOTY MD ECHOCARDIOGRAM REPORT ECHO CHARGES 4 ECHO COMPLETE Date: 09/01/20 CLINICAL DIAGNOSIS: CARDIOMYOPATHY/A FIB ASSESS EF /MR/TR ECHOCARDIOGRAPHIC MEASUREMENTS (adult normal given) AC root (d.<3.7cm) 3.3 cm LV Septum d (<1.2 cm> 1.1 cm Valve Excursion 1.7 cm LV Septum (systole) 1.2 cm Left Atria (s.<4.0cm> 4.6 cm LVPW d(<1.2cm) 1.4 cm RV (d.<2.3cm) 3.2 cm LVPW (sytole) 1.7 cm LV diastole(<5.6CM) 5.8 cm MV E-F(>70mm/sec) cm LV systole 4.6 cm LVOT Diameter 1.9 cm MV exc.(>10mm) 1.7 cm Est.ejection fraction (50-75%) % DOPPLER: LVIT cm/sec A cm/sec E 102.0 cm/sec LA cm/sec RVSP 26 mmHg LVOT 94 cm/sec AOP1/2T m/s Asc. Ao 128 cm/sec RVOT 84 cm/sec RA cm/sec PA 109 cm/sec AV Gradient Peak 6.50 mmHg AV Mean 3.42 mmHg AV Area 1.9 cm MV Gradient Peak 7.30 mmHg MV Mean 2.50 mmHg MV Area cm COMMENTS: Battery Hand: 2 MILAGROS AGUIRRE Director Orange: 3 Dr. Chase TAPE# PACS Pericardial Effusion N DATE OF SERVICE: Adequate 2D, color flow imaging, spectral Doppler, and M-Mode. Borderline LVH. LV internal dimensions are upper limits of normal at 5.8 cm. LV wall motion is normal. EF is greater than or equal to 55%. Aortic valve is tricuspid. No evidence of stenosis by Doppler interrogation. Left atrium is dilated at 4.6 cm. Mitral valve shows no prolapse. Trace MR. Right side is grossly normal. Mild TR. ECHOCARDIOGRAM REPORT [id number] CRISTIAN SHAW TRANSINT:[id number] Voice Confirmation ID: [id number] DOCUMENT ID: [id number] BHAVESH DOTY MD at 1352 CC: [id number] DICTATION DATE: 09/04/20 1006 MATERIALS DEVELOPMENT ENGINEER: 09/04/20 1319 DEP CLI 09/01/20 [place] [id number] [place] [id number]
== END | disposition home or self-care (01) ==
LOC: D.HCCECHO 08:02
PROVIDERS: ATTEND Internal Medicine Interventional Cardiology
DX: I42.9 Cardiomyopathy, unspecified (principal)

== ENCOUNTER 2020-10-02 11:17 | Day surgery (SDC) | payer BC ==
[~2020-10-02] VITALS: Ht 177.8 cm; Wt 155.2 kg
--- NOTE | ~2020-10-02 | HEMODYNAMI ---
PATIENT:CRISTIAN SHAW MEDICAL RECORD: [id number] : 77 LOCATION:[facility] ADMISSION DATE: 10/02/20 Generatedon:114:19 Patient name: CRISTIAN SHAW Patient #: [id number] SS N: : 1975 Date of study: 10/02/2020 Page: Of Hemodynamic Procedure Report Patient Data Patient Demographics Procedure consent was obtained First Name: CRISTIAN Gender: Male Last Name: VALERIA : 1975 Patient #: [id number] Age: 44 year(s) Race: Unknown Additional ID: [id number] Contact details Address: [address] [place] [address] RO[address] State: [place] City: [place] Zip code: [address] Past Medical History Allergies: No known allergies Admission Admission Data Admission Date: 10/02/2020 Admission Time: 13:30 Admit Source: Other Weight (lbs.): 343 Weight (kg.): 155.58 Lab Results Lab Result Date: 10/02/2020 Lab Result Time: 0:00 Biochemistry Name Units Result Min Max BUN mg/dl 16 --(---*)-- 7 18 Creatinine mg/dl 1.1 --(--*-)-- 0.6 1.3 CBC Name Units Result Min Max Hemoglobin g/dl 15.5 --(-*--)-- 13.5 17.5 Procedure Procedure Types Cath Procedure Diagnostic Procedure Cardioversion External Procedure Description Procedure Date Procedure Date: 10/02/2020 Procedure Start Time: 14:05 Procedure End Time: 14:11 Procedure Staff Name Function Jorge Oh MD Performing Physician Barbara Hodges RT Monitor Gabbie Mittal, RN Nurse Shiv Medley CRNA Additional personnel Procedure Data Cath Procedure Estimated blood loss: 0 ml Procedure Complications No complications Procedure Medications Medication Administration Route Dosage Oxygen etCO2 Nasal cannula 4 l/min 0.9% NaCl I.V. 100 ml/hr Refer to Anesthesia Notes for Sedation Medications Hemodynamics Rest HGB: 15.5 (g/dl) Heart Rate: 71 (bpm) Snapshots Pre Cath Intra NCS Post Cath Vital Signs Time Heart Resp SPO2 etCO2 NIBP (mmHg) Rhythm Pain Sedation Rate (ipm) (%) (mmHg) Status Level (bpm) 13:53:47 68 21 No Cuff NSR (Missing) 10(A) 13:58:46 81 14 97 Measuring NSR (Missing) 10(A) 14:00:10 75 22 99 Time NSR (Missing) 10(A) Exceeded 14:03:29 85 21 90 147/89(131) NSR (Missing) 10(A) 14:08:28 85 17 98 23.1 122/82(117) NSR (Missing) 10(A) 14:13:45 69 15 96 9.6 128/84(111) NSR (Missing) 10(A) Medications Time Medication Route Dose Verified Delivered Reason Notes Effective ness by by 14:01:48 Oxygen etCO2 4 Gabbie Gabbie for low Nasal l/min Kyrie Mittal, 02 sats cannula RN RN 14:01:59 0.9% NaCl I.V. 100 Gabbie Gabbie Per ml/hr Kyrie Mittal, physician RN RN 14:02:10 Refer to Gabbie Gabbie Anesthesia Kyrie Mittal, Notes for RN RN Sedation Medications Procedure Log Time Note 13:26:43 Admit Source: Other 13:27:01 Patient Weight : 343 lbs 13:35:16 Lab Result : BUN 16 mg/dl 13:35:16 Lab Result : Hemoglobin 15.5 g/dl 13:35:16 Lab Result : Creatinine 1.1 mg/dl 13:37:11 Procedure Status Elective Heart Cath (OP). 13:37:13 Barbara Hodges RT(R) sent for patient. Start room use. 13:37:15 Time tracking: Regular hours (M-F 7:00 - 5:00) 13:37:37 Plan of Care:Hemodynamics will remain stable., Cardiac rhythm will remain stable., Comfort level will be maintained., Respiratory function will remain adequate., Patient/ family verbilizes understanding of procedure., Procedure tolerated without complication., Recovers from procedure without complications.. 13:38:02 Quick Combo opened to sterile field. 13:46:38 Patient arrived from Pre/Post Procedure Room to CCL 3. Patient remains on bed/stretcher for procedure. 13:46:46 Signed procedure consent form obtained from patient. 13:46:47 Warm blankets applied, and manny hugger turned on for patient comfort. 13:46:47 Correct patient and procedure confirmed by team. 13:47:22 H&P Date Dictated: 09/14/2020 Within 30 days and on chart., H&P Addendum completed by physician on day of procedure. (MUST COMPLETE FOR ALL OUTPATIENTS). 13:47:23 Pre-procedure instructions explained to patient. 13:47:23 Pre-op teaching completed and patient verbalized understanding. 13:47:25 Family in patients room. 13:47:27 Patient NPO since Midnight. 13:47:34 Patient allergic to No known allergies 13:47:37 Is the patient allergic to Iodine/contrast media? No. 13:52:22 Is patient on blood thinner?Yes 13:52:26 ACC The patient was administered the following blood thiners within the last 24 hours: Eliquis 13:52:29 Patient diabetic? No. 13:52:33 Snore? Yes 13:52:35 Sleep apnea? Yes 13:52:46 Dentures? No ? 13:52:56 ECG and BP/O2 sat monitors applied to patient. 13:52:57 Vital chart was started 13:53:00 Baseline sample Acquired. 13:53:09 Rhythm: atrial fibrillation 13:53:11 Full Disclosure recording started 13:53:35 IV patent on arrival in left hand with 0.9% NaCl at KVO. 13:53:38 Lab results completed and on chart. 13:53:41 Alarms reviewed by R. N. 13:53:42 Sharps counted by scrub and verified by R.N. 13:53:45 Physician paged 13:58:07 Physician arrived 13:58:09 --------ALL STOP TIME OUT------ 14:00:12 Final Timeout: patient, procedure, and site verified with staff and physician. All members of the team are in agreement. 14:00:28 Fire Safety Assessment: A--An alcohol-based skin anteseptic being used preoperatively., C--Open oxygen or nitrous oxide is being used. 14:00:33 Physical assessment completed. ASA score P 3 - A patient with severe systemic disease as per Jorge Oh MD. 14:00:39 Sedation plan: TIVA Medication:Propofol 14:00:44 Shiv Medley CRNA present and monitoring patient for TIVA. 14:01:48 Oxygen 4 l/min etCO2 Nasal cannula was administered by Gabbie Mittal RN; for low 02 sats; Verbal order read back and verified. 14:01:59 0.9% NaCl 100 ml/hr I.V. was administered by Gabbie Mittal RN; Per physician; Verbal order read back and verified. 14:02:10 Refer to Anesthesia Notes for Sedation Medications was administered by Gabbie Mittal RN; ; Verbal order read back and verified. 14:02:14 Quick combo pads placed on patients chest and back. 14:05:49 Procedure started. 14:06:16 Defibrillator synced and charged to 200 Joules. 14:06:27 Shock delivered. 14:07:05 Defibrillator synced and charged to 300 Joules. 14:07:22 Shock delivered. 14:08:21 Defibrillator synced and charged to 360 Joules. 14:09:08 Shock delivered. 14:09:34 Patient cardioverted to sinus rhythm . 14:09:54 Procedure ended.(Physican Out) 14:10:22 Post procedure rhythm: sinus rhythm 14:10:26 Estimated blood loss: 0 ml 14:10:40 Post procedure instruction explained to patient.Patient verbalizes understanding. 14:10:51 Procedure and supply charges have been captured, reviewed, submitted and are correct. 14:11:11 Procedure Complication : No complications 14:11:13 Vital chart was stopped 14:11:29 Operative report dictated upon procedure completion. 14:11:30 See physician's report for complete and final results. 14:11:32 Report given to Pre/Post Procedure Room. 14:11:34 Patient transfered to Pre/Post Procedure Room with Stretcher. 14:11:37 Procedure ended. 14:11:37 Full Disclosure recording stopped 14:11:45 End room use (Document Last) Device Usage Item Manufacture Quantity Catalog Hospital Part Current Minimal Lot# / Name Number Charge Number Stock Stock Penelope al# Code [employer] 1 [id number] Combo Signature Audit Brayton Stage Time Signature Unsigned Intra-Procedure 10/02/2020 Barbara Hodges 2:17:24 PM RT(R) Intra-Procedure 10/02/2020 Gabbie Mittal, 2:18:37 PM RN Intra-Procedure 10/02/2020 Jorge Oh MD 2:19:15 PM [place] [id number] [place] [address]
[~2020-10-02 11:17] MED LIST changes: +BAYER CHEWABLE81 MG PO; +BETAPACE 80 MG80 MG PO; +CIALIS2.5 MG PO; +POTASSIUM99 M1 PO; +ZYLOPRIM100 MG PO
[2020-10-02] MEDS ORDERED: ZYLOPRIM300 MG (12:07)
[2020-10-02 12:18] VITALS: BP 137/84; Ht 177.8 cm; Wt 155.2 kg
[2020-10-02 12:29] LABS: INR 1.03 (0.85-1.17); PROTIME 12.5 SECONDS (11.6-15.0)
[2020-10-02 12:33] LABS: CALC OSMOLALITY 282 mosm/kg (275-300); CALCIUM 8.8 mg/dL (8.5-10.1); CARBON DIOXIDE 26.6 mmol/L (21.0-32.0); CHLORIDE - SERUM 108 mmol/L (98-107); CREATININE - SERUM 1.1 mg/dL (0.6-1.3); GLUCOSE 86 mg/dL (74-106); POTASSIUM - SERUM 4.1 mmol/L (3.5-5.1); SODIUM 142 mmol/L (136-145); UREA NITROGEN 16 mg/dL (7-18); eGFR NON AFRICAN AMERICAN 78 mL/min (90-120)
[2020-10-02 12:47] LABS: BASOPHILS 0.4 % (0-2); EOSINOPHILS 1.3 % (0-7); HEMATOCRIT 47.4 % (42.0-54.0); HEMOGLOBIN 15.5 g/dL (13.5-17.5); IMMATURE GRANULOCYTES 0.4 % (0-5); LYMPHOCYTE ABS# 1.94 10x3/uL (1.32-3.57); LYMPHOCYTES 23.8 % (15-50); MCH 30.1 pg (26.0-34.0); MCHC 32.7 g/dL (31.0-37.0); MEAN PLATELET VOLUME 11.2 fL (7.4-10.4); MONOCYTES 10.3 % (2-11); NEUTROPHILS 63.8 % (40-80); PLATELET COUNT 262 10x3/uL (130-400); RBC 5.15 10x6/uL (4.20-6.10); RDW 14.2 % (11.5-14.5); WBC 8.2 10x3/uL (4.8-10.8)
--- NOTE | 2020-10-02 14:27 | NUR ---
PT REC'D TO SHOOK SPLICER RECOVERY ROOM 4 VIA STRETCHER, MONITORS ESTAB. AT BS. SEE PROJECT DEVELOPMENT MANAGER FLOWSHEETS. ALARMS ON AND C/L IN REACH.
--- NOTE | 2020-10-02 14:35 | NUR ---
CM - NSR, NO ECTOPY NOTED. PT RESTING QUIETLY, VSS. ALARMS ON AND C/L IN REACH.
--- NOTE | 2020-10-02 14:45 | NUR ---
DR. HEREDIA IN TO SEE PT, UPDATED PT AND HIS . CM - SB/SR, NO ECTOPY. VSS.
--- NOTE | 2020-10-02 15:00 | NUR ---
PT SITTING UP IN BED, GIVEN SPRITE AND WATER PER REQUEST, REFUSES SANDWICH AT THIS TIME. CM - SB, NO ECTOPY NOTED. VSS. C/L IN REACH.
--- NOTE | 2020-10-02 15:17 | NUR ---
CM - SB, NO ECTOPY. PIV D/C'D INTACT, DSG APPLIED. PT ALLOWED UP TO GET DRESSED AND GO TO BR INDEPENDENTLY.
--- NOTE | 2020-10-02 15:27 | NUR ---
ALL DISCHARGE INSTRUCTIONS REVIEWED WITH PT AND HIS , INCLUDING RESTRICTIONS, MEDS AND F/U APPT - BOTH VERBALIZE UNDERSTANDING.
--- NOTE | 2020-10-02 15:35 | NUR ---
PT D/C'D TO PRIVATE VEHICLE WITH ALL PAPERWORK AND BELONGINGS.
== END 2020-10-02 15:35 | disposition home or self-care (01) ==
LOC: D.CATH 11:17
PROVIDERS: ATTEND Internal Medicine Cardiovascular Disease
DX: I48.91 Unspecified atrial fibrillation (principal); G47.33 Obstructive sleep apnea (adult) (pediatric); N52.9 Male erectile dysfunction, unspecified